=== PATIENT | male | born 1980 | race Caucasian/White ===

== ENCOUNTER 2021-04-11 23:11 | Inpatient (IN) | payer OTHER ==
[~2021-04-11] VITALS: Ht 180.3 cm; Wt 76.2 kg
--- NOTE | 2021-04-11 23:35 | NUR ---
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 PT TOOK NITRO SL BEFORE COMING TO ER. PT IS A/OX4. CURRENTLY ON ROOM AIR SHOWING NO S/S OF RESP DISTRESS/SOB. WILL CONTINUE TO MONITOR AND ASSESS FOR ANY CHANGES.
[2021-04-11] MEDS ORDERED: MORPHINE SULFATE INJ 4 MG/ML DISP.SYRIN ONE (23:41)
[2021-04-11] MEDS ORDERED: NITROGLYCERIN 0.4 MG/TAB BOTTLE ONE (23:41)
--- NOTE | 2021-04-11 23:43 | NUR ---
Maryann borjas in ED - 04/12/21 at 0041 by HERIBERTO PT NOW REPORTING CHEST PAIN TO BE 2-09/30. WILL CONTINUE TO MONITOR AND ASSESS FOR ANY CHANGES.
[2021-04-11 23:45] LABS: BASOPHILS # (AUTO) 0.1 K/uL (0.0-0.2); BASOPHILS % (AUTO) 1.1 % (0.0-2.0); EOSINOPHILS % (AUTO) 1.6 % (0.0-6.0); HEMATOCRIT 47 % (39-51); HEMOGLOBIN 15.8 g/dL (13.5-17.5); LYMPHOCYTES % (AUTO) 37.1 % (20.0-44.0); MEAN CORPUSCULAR HGB CONC 34 g/dl (31.0-36.0); MEAN CORPUSCULAR VOLUME 91 fL (80-96); MONOCYTES # (AUTO) 0.6 K/uL (0.1-1.30); MONOCYTES % (AUTO) 7.7 % (2.0-12.0); NEUTROPHILS # (AUTO) 4.2 K/uL (1.8-8.9); NEUTROPHILS % (AUTO) 52.5 % (43.0-81.0); PLATELET COUNT (AUTO) 250 K/uL (150-450); RED BLOOD CELL COUNT(AUTO) 5.12 MIL/uL (4.5-6.0)
[2021-04-11 23:53] LABS: CARBON DIOXIDE 24 mmol/L (21-32); CHLORIDE 106 mmol/L (98-107); GLUCOSE 108 mg/dL (74-106); POTASSIUM 3.8 mmol/L (3.5-5.1); SODIUM SERUM 141 mmol/L (136-145); UREA NITROGEN, BLOOD 16 mg/dL (7-18)
--- NOTE | 2021-04-11 23:58 | NUR ---
ONE NITRO SL GIVEN, PT REPORTS CHEST PAIN AROUND 6-7, ANOTHER NITRO GIVEN 5 MIN LATER, PT NOW REPORTING CHEST PAIN OF 4. MD MADE AWARE.
[2021-04-12] MEDS ORDERED: NITROGLYCERIN 0.4 MG/TAB BOTTLE SL ONE
[2021-04-12] MEDS ORDERED: MORPHINE SULFATE INJ 2 MG/ML DISP.SYRIN IV ONE
[2021-04-12] MEDS ORDERED: CT SWABBABLE VALVE TRANS SET 1 EA INFUS.SET MC ONE (00:04)
[2021-04-12] MEDS ORDERED: IOHEXOL-350 100 ML VIAL IV ONE (00:04)
--- NOTE | 2021-04-12 00:10 | NUR ---
PT NOW REPORTING CHEST PAIN TO BE 2-3/10. WILL CONTINUE TO MONITOR AND ASSESS FOR ANY CHANGES.
--- NOTE | 2021-04-12 00:29 | NUR ---
COVID SPECIMEN COLLECTED AND SENT TO LAB
--- NOTE | 2021-04-12 00:56 | NUR ---
PT TAKEN TO CT
[2021-04-12] MEDS ORDERED: LABETALOL 20 MG/4 ML VIAL IV PRN (03:00)
[2021-04-12] MEDS ORDERED: MORPHINE SULFATE INJ 2 MG/ML DISP.SYRIN IV PRN (03:00)
[2021-04-12] MEDS ORDERED: ONDANSETRON HCL/PF 4 MG/2 ML VIAL IVP PRN (03:00)
[2021-04-12] MEDS ORDERED: ACETAMINOPHEN 325 MG TABLET PO PRN (03:00)
[2021-04-12] MEDS ORDERED: hydrALAZINE HCL IV 20 MG VIAL IV PRN (03:00)
--- NOTE | 2021-04-12 07:14 | NUR ---
ASSESSED PT ON BED AWAKE AND ALERT, NOT IN RESPIRATORY DISTRESS, ON TELEPHONY ENGINEER, KEPT RESTED AND COMFORTABLE. WILL CONTINUE TO MONITOR.
--- NOTE | 2021-04-12 07:27 | NUR ---
PT STATED HE WANTS TO CHECKED OUT AND WANTS TO SIGN AMA.
--- NOTE | 2021-04-12 07:29 | NUR ---
AWARE AWARE PT WANTS TO GO AMA.
--- NOTE | 2021-04-12 07:30 | NUR ---
IV removed. Catheter intact and site benign. Pressure and 4x4 applied to site. No bleeding noted.
--- NOTE | 2021-04-12 07:30 | NUR ---
Patient does not wish to proceed with medical care recommended by Dr. RAMIREZ. Patient given information related to possible complications, up to and including , which could occur as a result of leaving the hospital at this time. Patient verbalizes understanding of risks involved due to leaving against medical advice. Patient has signed AMA form.
[2021-04-12 07:36] VITALS: BP 153/94
[2021-04-12] MEDS ORDERED: LISINOPRIL (10MG) 10 MG TABLET PO SCH (09:00)
[2021-04-12] MEDS ORDERED: CARVEDILOL 6.25 MG TABLET PO SCH (09:00)
== END 2021-04-12 07:36 | disposition left against medical advice (07) | DRG 203 ==
LOC: ER 23:13 → TRANSITION 04-12 02:56
PROVIDERS: ADMIT Internal Medicine; ATTEND Internal Medicine
DX: R07.9 Chest pain, unspecified (principal); G82.20 Paraplegia, unspecified; I50.9 Heart failure, unspecified; I11.0 Hypertensive heart disease with heart failure; R53.1 Weakness; Z20.822 Contact with and (suspected) exposure to COVID-19; J45.909 Unspecified asthma, uncomplicated; Z91.010 Allergy to peanuts; Z91.048 Other nonmedicinal substance allergy status; R20.0 Anesthesia of skin
CPT/HCPCS: 36415; 70450-TC; 71045-TC; 80048-TC; 83605-TC; 83880; 84484-TC; 85025-TC; 85378-TC; C9803; G0378; J2270; J2405; Q9967

== ENCOUNTER 2021-05-07 15:47 | Emergency (ER) | payer OTHER ==
[~2021-05-07] VITALS: Ht 180.3 cm; Wt 77.1 kg
--- NOTE | 2021-05-07 15:57 | NUR ---
aaox3, BIBRA 37 from home for syncopal episode, no head trauma noted. skin is warm and dry. placed on the monitor. Will continue to monitor.
[2021-05-07] MEDS ORDERED: IV NS 0.9% 1,000 ML BAG IV ONE (16:00)
--- NOTE | 2021-05-07 16:02 | NUR ---
BLOOD COLLECTED AND SEN TO LAB
--- NOTE | 2021-05-07 16:05 | NUR ---
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
[2021-05-07 16:06] LABS: BASOPHILS # (AUTO) 0.1 K/uL (0.0-0.2); BASOPHILS % (AUTO) 0.7 % (0.0-2.0); EOSINOPHILS % (AUTO) 1.4 % (0.0-6.0); HEMATOCRIT 45 % (39-51); LYMPHOCYTES # (AUTO) 2.4 K/uL (0.8-4.8); LYMPHOCYTES % (AUTO) 28.5 % (20.0-44.0); MEAN CORPUSCULAR HGB CONC 34 g/dl (31.0-36.0); MEAN CORPUSCULAR VOLUME 90 fL (80-96); MONOCYTES # (AUTO) 0.6 K/uL (0.1-1.30); MONOCYTES % (AUTO) 7.1 % (2.0-12.0); NEUTROPHILS # (AUTO) 5.3 K/uL (1.8-8.9); NEUTROPHILS % (AUTO) 62.3 % (43.0-81.0); PLATELET COUNT (AUTO) 283 K/uL (150-450); RED BLOOD CELL COUNT(AUTO) 4.96 MIL/uL (4.5-6.0); WHITE BLOOD COUNT (AUTO) 8.5 K/uL (4.3-11.0)
[2021-05-07 16:15] LABS: CALCIUM, SERUM 8.6 mg/dL (8.5-10.1); CARBON DIOXIDE 26 mmol/L (21-32); CHLORIDE 106 mmol/L (98-107); GLUCOSE 95 mg/dL (74-106); POTASSIUM 3.7 mmol/L (3.5-5.1); SODIUM SERUM 141 mmol/L (136-145); UREA NITROGEN, BLOOD 15 mg/dL (7-18)
--- NOTE | 2021-05-07 17:15 | NUR ---
IV removed. Catheter intact and site benign. Pressure and 4x4 applied to site. No bleeding noted.Patient discharged to home in stable condition. Written and verbal after care instructions given. Patient verbalizes understanding of instruction.
[2021-05-07 17:24] VITALS: BP 153/99
== END 2021-05-07 17:25 | disposition home or self-care (01) ==
LOC: ER 16:52
DX: R55 Syncope and collapse (principal); I11.0 Hypertensive heart disease with heart failure; I50.9 Heart failure, unspecified; J45.909 Unspecified asthma, uncomplicated; Z91.010 Allergy to peanuts
CPT/HCPCS: 36415; 71045; 80048; 84484; 85025; 93005; 96360; 99285; J7030

== ENCOUNTER 2022-08-31 10:52 | Emergency (ER) | payer OTHER ==
[~2022-08-31] VITALS: Ht 180.3 cm; Wt 81.6 kg
[2022-08-31] MEDS ORDERED: PRED50TA PO (11:30)
[2022-08-31] MEDS ORDERED: ALBUTEROL FS 2.5 MG/3 ML VIAL.NEB NEB ONE (11:30)
[2022-08-31] MEDS ORDERED: predniSONE 50 MG TABLET PO ONE (11:30)
[2022-08-31] MEDS ORDERED: IPRATROPIUM NEB FS 0.5 MG/2.5 ML AMPUL.NEB NEB ONE (11:30)
[2022-08-31] MEDS ORDERED: ALBU18HF2 INH (11:30)
--- NOTE | 2022-08-31 11:30 | NUR ---
RT NOTIFIED FOR BREATHING TREATMENT
[2022-08-31] MEDS ORDERED: ALBUTEROL FS 2.5 MG/3 ML VIAL.NEB ONE (11:39)
[2022-08-31] MEDS ORDERED: IPRATROPIUM NEB FS 0.5 MG/2.5 ML AMPUL.NEB ONE (11:39)
--- NOTE | 2022-08-31 11:42 | NUR ---
RT AT BEDSIDE FOR BREATHING TX
[2022-08-31] MEDS ORDERED: methylPREDNISolone SOD SUCC 125 MG/2ML VIAL ONE (11:54)
[2022-08-31] MEDS ORDERED: Magnesium 1GM/D5W 100ML PREMIX 100 ML IV ONE ×2 (11:54→13:00)
[2022-08-31] MEDS ORDERED: methylPREDNISolone SOD SUCC 125 MG/2ML VIAL IV ONE (12:00)
[2022-08-31] MEDS: Magnesium 1GM/D5W 100ML PREMIX 100 ML IV SCH ×2 (12:07→12:59)
--- NOTE | 2022-08-31 12:08 | NUR ---
upon pushing solu medrol pt states that he felt cold then began coughing and had a cramp notifed
--- NOTE | 2022-08-31 12:16 | NUR ---
pt stable. vital signs wnl, breathing is even and unlabored 98% O2 sat A/O x4
[2022-08-31 13:17] VITALS: BP 164/96
== END 2022-08-31 13:18 | disposition home or self-care (01) ==
LOC: ER 11:25
DX: J45.901 Unspecified asthma with (acute) exacerbation (principal); G82.20 Paraplegia, unspecified; I11.0 Hypertensive heart disease with heart failure; I50.9 Heart failure, unspecified; F17.200 Nicotine dependence, unspecified, uncomplicated; Z79.899 Other long term (current) drug therapy
CPT/HCPCS: 99291; 96374; 96375; 96376; 94640 ×2; J2930; J3475 ×2